=== PATIENT | male | born 1955 | race Caucasian/White ===

== ENCOUNTER 2016-08-23 11:18 | Emergency (ER) | payer BC, OTHER ==
[2016-08-23] MEDS ORDERED: IPRATROPIUM/ALBUTEROL (0.5MG/3MG) NEB INH ONE (11:42)
[2016-08-23] MEDS ORDERED: METHYLPREDNISOLONE PF 125MG/VIAL IVP SCH (11:45)
[2016-08-23 11:52] LABS: BASO % 0.4 % (0-6); EOS % 2.4 % (0-6); GRAN % 67.4 % (47-80); HEMATOCRIT 42.1 % (42.0-52.0); HEMOGLOBIN 14.2 gm/dl (14.0-18.0); LYMPH % 17.9 % (16-45); MEAN CORPUSCULAR HEMOGLOBIN 31.7 pg (27-33); MEAN CORPUSCULAR HGB CONC 33.7 g/dl (32-36); MEAN PLATELET VOLUME 9.3 fl (7.4-10.4); MONO % 11.9 % (0-9); PLATELET COUNT 323 K/uL (130-400); RED BLOOD COUNT 4.48 M/uL (4.40-5.70); RED CELL DISTRIBUTION WIDTH 12.6 % (11.5-14.5); WHITE BLOOD COUNT W/O DIFF 7.9 K/uL (4.2-12.2)
--- NOTE | 2016-08-23 11:52 | Emergency Department Record ---
History of Present Illness - General Chief Complaint: Difficulty Breathing Stated Complaint: COUGH,JAMI Time Seen by Provider: 08/23/16 11:42 Source: Patient, Family Mode of Arrival: Ambulatory Limitations: No limitations - History of Present Illness Initial Comments: 61 yo male presents with 2 months of persistent cough. He has had yellow sputum. No blood. He is a smoker life long. No NVD. No edema. No chest pain. He has seen Dr Sumner in the past but not currently. Complaint: Cough Onset/Timin -: Month(s) Severity: Severe Consistency: Intermittent Worsens With: Exertion Known History Of: Other (chronic smoker) Context: Recent URI Associated Symptoms: Denies other symptoms Treatments Prior to Arrival: None - Related Data Home Oxygen Therapy: No Previous Rx's Medication Instructions Recorded Azithromycin [Zithromax] 250 mg PO DAILY #6 tab 08/23/16 Benzonatate [Tessalon] 1 cap PO Q8H PRN #20 cap 08/23/16 Ipratropium/Albuterol [Duoneb] 3 ml IH NOW #30 ampul.neb. 08/23/16 Prednisone [Prednisone 20Mg] 20 mg PO BID #10 tab 08/23/16 Allergies Allergy/AdvReac Type Severity Reaction Status Date / Time No Known Drug Allergies Allergy Verified 08/23/16 11:30 Travel Screening - Travel/Exposure Within Last 30 Days Have you traveled within the last 30 days?: No Review of Systems Constitutional: Denies: Chills, Fever, Malaise, Weakness Eyes: Denies: Eye discharge ENT: Reports: Congestion. Denies: Throat pain Respiratory: Reports: Cough, Wheezes. Denies: Dyspnea, Hemoptysis, Stridor Cardiovascular: Denies: Chest pain, Palpitations, Syncope Endocrine: Denies: Fatigue Gastrointestinal: Denies: Abdominal pain, Diarrhea, Nausea, Vomiting Genitourinary: Denies: Dysuria, Frequency, Hematuria Musculoskeletal: Denies: Arthralgia, Back pain, Joint swelling, Myalgia Skin: Denies: Bruising, Change in color, Rash Neurological: Denies: Confusion, Headache Psychiatric: Denies: Anxiety Hematological/Lymphatic: Denies: Blood Clots, Easy bleeding, Easy bruising, Swollen glands Past Medical History - SOCIAL HISTORY Smoking Status: Current every day smoker Alcohol Use: Heavy Drug Use: None - RESPIRATORY Hx Respiratory Disorders: Yes Comment:: emphysema - CARDIOVASCULAR Hx Cardio Disorders: No - NEURO Hx Neuro Disorders: No - GI Hx GI Disorders: No - Hx Genitourinary Disorders: No - ENDOCRINE Hx Endocrine Disorders: No - MUSCULOSKELETAL Hx Musculoskeletal Disorders: No - PSYCH Hx Psych Problems: No - HEMATOLOGY/ONCOLOGY Hx Hematology/Oncology Disorders: Yes Hx Blood Transfusions: Yes Family Medical History Any Significant Family History?: No Physical Exam - General General Appearance: Alert, Oriented x3, Cooperative, No acute distress Limitations: No limitations - Head Head exam: Normal inspection - Eye Eye exam: Normal appearance, PERRL. negative: Conjunctival injection, Periorbital swelling - ENT ENT exam: Normal exam, Mucous membranes moist, Normal external ear exam, Normal orophraynx Ear exam: Normal external inspection. negative: External canal tenderness Nasal Exam: Normal inspection. negative: Discharge, Sinus tenderness Mouth exam: Normal external inspection, Tongue normal Teeth exam: Normal inspection. negative: Dental caries Throat exam: Normal inspection. negative: Tonsillar erythema, Tonsillar exudate - Neck Neck exam: Normal inspection, Full ROM. negative: Tenderness - Respiratory Respiratory exam: Decreased breath sounds, Prolonged expiratory, Wheezes (end expiratory). negative: Respiratory distress - Cardiovascular Cardiovascular Exam: Regular rate, Normal rhythm, Normal heart sounds - GI/Abdominal GI/Abdominal exam: Soft, Normal bowel sounds. negative: Tenderness - Rectal Rectal exam: Deferred - exam: Deferred - Extremities Extremities exam: Normal inspection, Full ROM, Normal capillary refill. negative: Tenderness - Back Back exam: Reports: Normal inspection, Full ROM. Denies: Muscle spasm, Rash noted, Tenderness - Neurological Neurological exam: Alert, Normal gait, Oriented X3 - Psychiatric Psychiatric exam: Normal affect, Normal mood. negative: Agitated, Anxious - Skin Skin exam: Dry, Intact, Normal color, Warm. negative: Cyanosis, Diaphoretic, Erythema Course Vital Signs 08/23/16 11:23 Temperature 97.7 F Pulse Rate 108 H Respiratory 20 Rate Blood Pressure 187/98 Pulse Ox 97 - Reevaluation(s) Reevaluation #1: vitals reviewed No hypoxia or fever He has mild end expiratory wheeze 08/23/16 11:46 Reevaluation #2: The CBC and BMP reviewed No acute changes 08/23/16 12:07 Reevaluation #3: The patient was rechecked He is doing much better. Minimal wheeze. 08/23/16 12:18 Reevaluation #4: CXR demonstrates elongated lung jarvis CW long standing COPD 08/23/16 12:20 Medical Decision Making - Lab Data Result diagrams: 08/23/16 11:30 08/23/16 11:30 Disposition Disposition: Discharge Clinical Impression: COPD (chronic obstructive pulmonary disease) with acute bronchitis Condition: (1) Good Instructions: Dyspnea (ED), Chronic Obstructive Pulmonary Disease (ED) Additional Instructions: Call your doctor today to be seen first of the week Return if worse, short of breath or any new concerns. Your prescriptions have been sent to [facility]. Start them today. Prescriptions: Ipratropium/Albuterol [Duoneb] 3 ml IH NOW #30 ampul.neb. Prednisone [Prednisone 20Mg] 20 mg PO BID #10 tab Benzonatate [Tessalon] 1 cap PO Q8H PRN #20 cap PRN Reason: Cough Azithromycin [Zithromax] 250 mg PO DAILY #6 tab Forms: Patient Portal Access
[2016-08-23 12:05] LABS: ANION GAP 14.2 (7-16); BLOOD UREA NITROGEN 10 mg/dL (9-20); CARBON DIOXIDE 23.8 mmol/L (22-30); CREATININE 0.7 mg/dL (0.66-1.25); EST GLOMERULAR FILTRATION RATE > 60 ml/min; GLUCOSE,RANDOM 117 mg/dL (70-110)
[2016-08-23 12:07] LABS: INFLUENZA A NEGATIVE (NEGATIVE); INFLUENZA B NEGATIVE (NEGATIVE)
--- NOTE | 2016-08-28 09:06 | RADIOLOGY REPORT ---
EXAM: CHEST, TWO VIEWS HISTORY: PRODUCTIVE COUGH FOR THREE MONTHS. DIFFICULTY BREATHING WITH EXERTION. SMOKER. TECHNIQUE: Two views of the chest were obtained. Comparison: None. FINDINGS: The lungs are hyperinflated with upper lung lucency consistent with emphysema. The lungs are clear. The cardiomediastinal silhouette, diaphragm, and osseous structures are unremarkable. IMPRESSION: EMPHYSEMA. NO ACUTE PROCESS. JOB NUMBER: [id number] MTDD
== END 2016-08-23 12:37 | disposition home or self-care (01) ==
LOC: ER 11:18
DX: J44.0 Chronic obstructive pulmonary disease with (acute) lower respiratory infection (principal); J20.9 Acute bronchitis, unspecified; F17.210 Nicotine dependence, cigarettes, uncomplicated
CPT/HCPCS: 71020; 80048; 85025; 87400; 94640; 96374; 99284; J2930

== ENCOUNTER 2017-04-30 08:07 | Observation (INO) | payer BC ==
[2017-04-30] MEDS ORDERED: 0.9 % SODIUM CHLORIDE 1000ML 1,000 ML IV PRN (08:11)
[2017-04-30] MEDS ORDERED: METHYLPREDNISOLONE PF 125MG/VIAL IVP ONE (08:11)
[2017-04-30] MEDS ORDERED: ALBUTEROL SULFATE (0.083%) 2.5 MG/3 ML NEB INH ONE (08:13)
[2017-04-30 08:37] LABS: BASO % 0.2 % (0-6); EOS % 0.4 % (0-6); GRAN % 79.2 % (47-80); HEMATOCRIT 39.7 % (42.0-52.0); HEMOGLOBIN 13.8 gm/dl (14.0-18.0); LYMPH % 7.6 % (16-45); MEAN CELL VOLUME 92.1 fl (81-97); MEAN CORPUSCULAR HGB CONC 34.8 g/dl (32-36); MEAN PLATELET VOLUME 9.3 fl (7.4-10.4); MONO % 12.6 % (0-9); PLATELET COUNT 318 K/uL (130-400); RED BLOOD COUNT 4.31 M/uL (4.40-5.70); WHITE BLOOD COUNT W/O DIFF 10.2 K/uL (4.2-12.2)
[2017-04-30 09:00] LABS: BLOOD UREA NITROGEN 10 mg/dL (6-20); CKMB 6.8 ng/mL (<6.73); CREATININE 0.5 mg/dL (0.7-1.2); EST GLOMERULAR FILTRATION RATE > 60 mL/min; GLUCOSE,RANDOM 143 mg/dL (74-109)
[2017-04-30 09:01] LABS: TROPONIN I < 0.30 ng/mL (0.00-0.300)
--- NOTE | 2017-04-30 09:11 | Emergency Department Record ---
History of Present Illness - General Chief Complaint: Shortness of breath Stated Complaint: JAMI Time Seen by Provider: 04/30/17 08:11 Source: Patient, RN notes reviewed Mode of Arrival: EMS - History of Present Illness Initial Comments: SOB and a cough worse this am and he went to work and called EMS and transported here and was given a duoneb in route. Patient said congestion and cough started couple of days ago. Patient still smoking and trying to quite . No chest pain and he is producing sputum. History of COPD MD Complaint: Cough, Shortness of breath Onset/Timin -: Hour(s) Consistency: Constant Improves With: Bronchodilators Associated Symptoms: Diaphoresis Treatments Prior to Arrival: Bronchodilator - Related Data Previous Rx's Medication Instructions Recorded Ipratropium/Albuterol [Duoneb] 3 ml IH NOW #30 ampul.neb. 08/23/16 Allergies Allergy/AdvReac Type Severity Reaction Status Date / Time No Known Drug Allergies Allergy Verified 08/23/16 11:30 Travel Screening - Travel/Exposure Within Last 30 Days Have you traveled within the last 30 days?: No - Travel/Exposure Within Last Year Have you traveled outside the [place] in the last year?: No - Additonal Travel Details Have you been exposed to anyone with a communicable illness?: No - Travel Symptoms Symptom Screening: None Review of Systems Reviewed: No additional complaints except as noted below Constitutional: Reports: As per HPI. Denies: Chills, Fever, Malaise, Night sweats, Weakness, Weight change Eyes: Reports: As per HPI. Denies: Eye discharge, Eye pain, Photophobia, Vision change ENT: Reports: As per HPI. Denies: Congestion, Dental pain, Ear pain, Epistaxis , Hearing loss, Throat pain Respiratory: Reports: As per HPI, Cough, Dyspnea, Wheezes. Denies: Hemoptysis, Stridor Cardiovascular: Reports: As per HPI. Denies: Arrhythmia, Chest pain, Dyspnea on exertion, Edema, Murmurs, Orthopnea, Palpitations, Paroxysmal nocturnal dyspnea, Rheumatic Fever, Syncope Endocrine: Reports: As per HPI. Denies: Fatigue, Heat or cold intolerance, Polydipsia, Polyuria Gastrointestinal: Reports: As per HPI. Denies: Abdominal pain, Constipation, Diarrhea, Hematemesis, Hematochezia, Melena, Nausea, Vomiting Genitourinary: Reports: As per HPI. Denies: Dysuria, Frequency, Hematuria, Incontinence, Retention, Testicular pain, Testicular mass, Urgency Musculoskeletal: Reports: As per HPI. Denies: Arthralgia, Back pain, Gout, Joint swelling, Myalgia, Neck pain Skin: Reports: As per HPI. Denies: Bruising, Change in color, Change in hair/ nails, Lesions, Pruritus, Rash Neurological: Reports: As per HPI. Denies: Abnormal gait, Confusion, Headache, Numbness, Paresthesias, Seizure, Tingling, Tremors, Vertigo, Weakness Psychiatric: Reports: As per HPI. Denies: Anxiety, Auditory hallucinations, Depression, Homicidal thoughts, Suicidal thoughts, Visual hallucinations Hematological/Lymphatic: Reports: As per HPI. Denies: Anemia, Blood Clots, Easy bleeding, Easy bruising, Swollen glands Past Medical History - SOCIAL HISTORY Smoking Status: Current every day smoker Alcohol Use: Heavy Alcohol Use Comment: 4-6 25oz beers daily Drug Use: None - RESPIRATORY Hx Respiratory Disorders: Yes Hx COPD: Yes Comment:: emphysema - CARDIOVASCULAR Hx Cardio Disorders: No - NEURO Hx Neuro Disorders: No - GI Hx GI Disorders: No - Hx Genitourinary Disorders: No - ENDOCRINE Hx Endocrine Disorders: No - MUSCULOSKELETAL Hx Musculoskeletal Disorders: No - PSYCH Hx Psych Problems: No - HEMATOLOGY/ONCOLOGY Hx Hematology/Oncology Disorders: Yes Hx Blood Transfusions: Yes Family Medical History Any Significant Family History?: No Physical Exam - General General Appearance: Alert, Oriented x3, Cooperative, No acute distress - Head Head exam: Normal inspection - Eye Eye exam: Normal appearance, PERRL Pupils: Normal accommodation - ENT ENT exam: Normal exam, Mucous membranes moist, Normal external ear exam, Normal orophraynx, TM's normal bilaterally Ear exam: Normal external inspection. negative: External canal tenderness Nasal Exam: Normal inspection. negative: Discharge, Sinus tenderness Mouth exam: Normal external inspection, Tongue normal Teeth exam: Normal inspection. negative: Dental caries Throat exam: Normal inspection. negative: Tonsillar erythema, Tonsillar exudate - Neck Neck exam: Normal inspection, Full ROM. negative: Tenderness - Respiratory Respiratory exam: Decreased breath sounds (IN LEFT LOWER LOBE WITH EGOPHONY), Wheezes. negative: Respiratory distress - Cardiovascular Cardiovascular Exam: Regular rate, Normal rhythm, Normal heart sounds - GI/Abdominal GI/Abdominal exam: Soft, Normal bowel sounds. negative: Tenderness - Rectal Rectal exam: Deferred - exam: Deferred - Extremities Extremities exam: Normal inspection, Full ROM, Normal capillary refill. negative: Tenderness - Back Back exam: Reports: Normal inspection, Full ROM. Denies: Muscle spasm, Rash noted, Tenderness - Neurological Neurological exam: Alert, Normal gait, Oriented X3, Reflexes normal - Psychiatric Psychiatric exam: Normal affect, Normal mood - Skin Skin exam: Dry, Intact, Normal color, Warm Course Vital Signs 04/30/17 04/30/17 04/30/17 08:08 08:11 08:21 Temperature 98.5 F Pulse Rate 103 H 106 H Pulse Rate [ 105 H Pulse Ox Probe] Respiratory 11 L 20 20 Rate Blood Pressure 179/84 Blood Pressure 134/85 [Left Arm] Pulse Ox 98 98 98 04/30/17 08:50 Temperature Pulse Rate Pulse Rate [ 108 H Pulse Ox Probe] Respiratory 20 Rate Blood Pressure Blood Pressure 132/83 [Left Arm] Pulse Ox [address] Fabian and will admit. Dr. Fabian here to evaluate. Medical Decision Making - Data Complexity MDM Data: Labs Ordered and/or Reviewed, X-Ray Ordered and/or Reviewed (left lower lung infiltrate), EKG Ordered and/or Reviewed (No acute changes and sinus tach, ) - Lab Data Result diagrams: 04/30/17 08:25 04/30/17 08:25 Lab Results 04/30/17 04/30/17 04/30/17 Range/Units 08:25 08:25 08:25 WBC 10.2 (4.2-12.2) K/uL RBC 4.31 L (4.40-5.70) M/uL Hgb 13.8 L (14.0-18.0) gm/dl Hct 39.7 L (42.0-52.0) % MCV 92.1 (81-97) fl MCH 32.0 (27-33) pg MCHC 34.8 (32-36) g/dl RDW 13.0 (11.5-14.5) % Plt Count 318 (130-400) K/uL MPV 9.3 (7.4-10.4) fl Gran % 79.2 (47-80) % Lymphocytes % 7.6 L (16-45) % Monocytes % 12.6 H (0-9) % Eosinophils % 0.4 (0-6) % Basophils % 0.2 (0-6) % APTT 30.70 (24.5-39.1) SECONDS Sodium 130 L (136-145) mmol/L Potassium 4.0 (3.4-4.5) mmol/L Chloride 90 L (98-107) mmol/L Carbon Dioxide 25.0 (22-29) mmol/L Anion Gap 15.0 (7-16) BUN 10 (6-20) mg/dL Creatinine 0.5 L (0.7-1.2) mg/dL Estimated GFR > 60 mL/min Random Glucose 143 H (74-109) mg/dL Calcium 9.3 (8.6-10.0) mg/dL CK-MB (CK-2) 6.8 H (<6.73) ng/mL Troponin I < 0.30 (0.00-0.300) ng/mL Disposition Clinical Impression: COPD (chronic obstructive pulmonary disease) with acute bronchitis LLL pneumonia Qualifiers: Pneumonia type: due to unspecified organism Qualified Code(s): J18.1 - Lobar pneumonia, unspecified organism Decision to Admit: Admit from ER Condition: (2) Stable Forms: Patient Portal Access Time of Disposition: 11:36 Quality - Quality Measures Quality Measures: N/A - Blood Pressure Screening Does Patient Have Any of the Following: No Blood Pressure Classification: Pre-Hypertensive BP Reading Systolic Measurement: 179 Diastolic Measurement: 84 Screening for High Blood Pressure: < Pre-Hypertensive BP, F/U Documented > [ G8950] Pre-Hypertensive Follow-up Interventions: Referral to alternative/primary care provider.
[2017-04-30] MEDS ORDERED: CEFTRIAXONE SODIUM 1 GM in 0.9 % SODIUM CHLORIDE 100ML 100 ML IVPB ONE (09:13)
[2017-04-30] MEDS ORDERED: 0.9 % SODIUM CHLORIDE 500ML 500 ML IV SCH (09:15)
[2017-04-30] MEDS ORDERED: AZITHROMYCIN 500 MG TABLET PO ONE ×2 (09:22→09:58)
[2017-04-30] MEDS ORDERED: AZITHROMYCIN 500 MG TABLET PO SCH (10:00)
[2017-04-30 10:40] LABS: CREATINE PHOSPHOKINASE 228 U/L (39-308)
[2017-04-30] MEDS ORDERED: ALBUTEROL SULFATE (0.083%) 2.5 MG/3 ML NEB INH PRN (12:14)
[2017-04-30] MEDS: 0.9 % SODIUM CHLORIDE 1000ML 1,000 ML IV PRN ×2 (13:00→21:11)
[2017-04-30] MEDS ORDERED: PNEUM 23-VAL ADULT IM ONE (13:14)
[2017-04-30] MEDS ORDERED: FLU VAC QS 2017-18 (INPT, 6MO+) 60MCG/0.5ML IM ONE (13:14)
[2017-04-30] MEDS: IPRATROPIUM/ALBUTEROL (0.5MG/3MG) NEB INH SCH ×3 (14:06→22:19)
[2017-04-30] MEDS: METHYLPREDNISOLONE PF 125MG/VIAL IVP SCH ×2 (15:07→21:08)
--- NOTE | 2017-04-30 19:14 | History & Physical ---
History of Present Illness - Date of Service Date of Service for History & Physical: 04/30/17 - History of Present Illness Admitting Diagnosis: Left lower pneumonia. copd with wheezing History of Present Illness: Mr. Vargas is a 61 y/o male who presents with complaint of shortness of breath over the past 2 days. The patient says that he at baseline shortness of breath but this was worse and he also began having a cough productive of white/yellow phlegm. He is a long-term smoker with a 40 pk/yr smoking history and says he did have a severe pneumonia about 8 years ago having to be hospitalized. He has never been intubated and denies fevers, chills, nausea, vomiting, chest pain or diaphoresis. On arrival to the ED the patient was noted be tachycardic and mildly hypoxic with chest xray showing infiltrate in the left lower lung. The patient was started on Rocephin and Azithromycin, IV solumedrol and respiratory treatments. On examination in the ED the patient appears stable, saturating in the mid 90's on 2 liters nasal cannula oxygen. He does not appear to be in acute distress at this time. Travel Screening - Travel/Exposure Within Last 30 Days Have you traveled within the last 30 days?: No - Travel/Exposure Within Last Year Have you traveled outside the [place] in the last year?: No - Additonal Travel Details Have you been exposed to anyone with a communicable illness?: No - Travel Symptoms Symptom Screening: None Review of Systems Constitutional: Reports: As per HPI. Denies: Chills, Fever, Malaise, Night sweats, Weakness, Weight change Eyes: Reports: As per HPI. Denies: Eye discharge, Eye pain, Photophobia, Vision change ENT: Reports: As per HPI. Denies: Congestion, Dental pain, Ear pain, Epistaxis , Hearing loss, Throat pain Respiratory: Reports: As per HPI, Cough, Dyspnea, Wheezes. Denies: Hemoptysis, Stridor Cardiovascular: Reports: As per HPI. Denies: Arrhythmia, Chest pain, Dyspnea on exertion, Edema, Murmurs, Orthopnea, Palpitations, Paroxysmal nocturnal dyspnea, Rheumatic Fever, Syncope Endocrine: Reports: As per HPI. Denies: Fatigue, Heat or cold intolerance, Polydipsia, Polyuria Gastrointestinal: Reports: As per HPI. Denies: Abdominal pain, Constipation, Diarrhea, Hematemesis, Hematochezia, Melena, Nausea, Vomiting Genitourinary: Reports: As per HPI. Denies: Dysuria, Frequency, Hematuria, Incontinence, Retention, Testicular pain, Testicular mass, Urgency Musculoskeletal: Reports: As per HPI. Denies: Arthralgia, Back pain, Gout, Joint swelling, Myalgia, Neck pain Skin: Reports: As per HPI. Denies: Bruising, Change in color, Change in hair/ nails, Lesions, Pruritus, Rash Neurological: Reports: As per HPI. Denies: Abnormal gait, Confusion, Headache, Numbness, Paresthesias, Seizure, Tingling, Tremors, Vertigo, Weakness Psychiatric: Reports: As per HPI. Denies: Anxiety, Auditory hallucinations, Depression, Homicidal thoughts, Suicidal thoughts, Visual hallucinations Hematological/Lymphatic: Reports: As per HPI. Denies: Anemia, Blood Clots, Easy bleeding, Easy bruising, Swollen glands Past Medical History - SOCIAL HISTORY Smoking Status: Current every day smoker Alcohol Use: Heavy Alcohol Use Comment: 4-6 25oz beers per day Drug Use: None - RESPIRATORY Hx Respiratory Disorders: Yes Hx Bronchitis: Yes Hx COPD: Yes Comment:: emphysema - CARDIOVASCULAR Hx Cardio Disorders: No Hx Hypertension: Yes (non-compliant with medications) - NEURO Hx Neuro Disorders: No - GI Hx GI Disorders: No - Hx Genitourinary Disorders: No - ENDOCRINE Hx Endocrine Disorders: No - MUSCULOSKELETAL Hx Musculoskeletal Disorders: No Hx Arthritis: Yes - PSYCH Hx Psych Problems: No - HEMATOLOGY/ONCOLOGY Hx Hematology/Oncology Disorders: Yes Hx Blood Transfusions: Yes (d/t heavy nose bleed) Family Medical History Any Significant Family History?: No H&P Meds/Allergies - Allergies Allergies: Allergies Allergy/AdvReac Type Severity Reaction Status Date / Time No Known Drug Allergies Allergy Verified 08/23/16 11:30 - Home Medications Previous Rx's Medication Instructions Recorded Ipratropium/Albuterol [Duoneb] 3 ml IH NOW #30 ampul.neb. 08/23/16 - Active Medications Active Medications: Current Medications Albuterol Sulfate () 2.5 mg INH RESP.Q2H PRN PRN Reason: DIFFICULTY IN BREATHING Albuterol/Ipratropium (Duoneb) 3 ml INH RESP.Q4H.WA AIDAN Last Admin: 04/30/17 17:41 Dose: 3 ml Azithromycin (Zithromax) 500 mg PO DAILY [facility] Enoxaparin Sodium (Lovenox) 40 mg SC DAILY [facility] Sodium Chloride () 1,000 mls @ 125 mls/hr IV .Q8H PRN PRN Reason: LARGE VOLUME IV Last Admin: 04/30/17 13:00 Dose: 125 mls/hr Ceftriaxone Sodium 1 gm/ (Sodium Chloride) 100 mls @ 100 mls/hr IVPB Q12HR [facility] Stop: 05/05/17 22:01 Methylprednisolone Sodium Succinate (Solu-Medrol) 60 mg IVP Q8HR [facility] Last Admin: 04/30/17 15:07 Dose: 60 mg Physical Exam - Vital Signs Vital Signs: Vital Signs - Last 24 Hrs Temp Pulse Pulse Resp BP BP Pulse Ox 04/30/17 18:00 97.5 F L 115 H 20 182/82 96 04/30/17 17:40 87 15 04/30/17 14:05 91 H 16 96 04/30/17 13:24 101 H 16 04/30/17 13:15 98.9 F 100 H 18 160/83 94 L 04/30/17 13:04 91 H 16 155/83 96 - General General Appearance: Alert, Oriented x3, Cooperative, No acute distress - Head Head exam: Normal inspection - Eye Eye exam: Normal appearance, PERRL Pupils: Normal accommodation - ENT ENT exam: Normal exam, Mucous membranes moist, Normal external ear exam, Normal orophraynx, TM's normal bilaterally Ear exam: Normal external inspection. negative: External canal tenderness Nasal Exam: Normal inspection. negative: Discharge, Sinus tenderness Mouth exam: Normal external inspection, Tongue normal Teeth exam: Normal inspection. negative: Dental caries Throat exam: Normal inspection. negative: Tonsillar erythema, Tonsillar exudate - Neck Neck exam: Normal inspection, Full ROM. negative: Tenderness - Respiratory Respiratory exam: Decreased breath sounds (IN LEFT LOWER LOBE WITH EGOPHONY), Rhonchi (bilateral lung bases ), Wheezes. negative: Respiratory distress - Cardiovascular Cardiovascular Exam: Regular rate, Normal rhythm, Normal heart sounds, Tachycardia Peripheral Pulses: 2+: Radial (R), Radial (L), Dorsalis Pedis (R), Dorsalis Pedis (L) - GI/Abdominal GI/Abdominal exam: Soft, Normal bowel sounds. negative: Tenderness - Rectal Rectal exam: Deferred - exam: Deferred - Extremities Extremities exam: Normal inspection, Full ROM, Normal capillary refill. negative: Tenderness - Back Back exam: Reports: Normal inspection, Full ROM. Denies: Muscle spasm, Rash noted, Tenderness - Neurological Neurological exam: Alert, Normal gait, Oriented X3, Reflexes normal - Psychiatric Psychiatric exam: Normal affect, Normal mood - Skin Skin exam: Dry, Intact, Normal color, Warm - Other Other Exam Information: noted bilateral metacarpal clubbing Results - Labs Result Diagrams: 04/30/17 08:25 04/30/17 08:25 VTE H&P Assessment - Risk for VTE Risk for VTE: Yes Risk Level: Moderate Risk Assessment Date: 04/30/17 Risk Assessment Time: 19:25 VTE Orders Placed or Will Be Placed: Yes Plan - Inpatient Certification Inpatient Certification: Admit to inpatient care: Based on my medical assessment, after consideration of patient's risk factors (age, co-morbidities and patient presenting symptoms and acuity), I expect that this patient will remain in the hospital greater than or equal to two midnights and that the services needed warrant inpatient care because: Estimated length of stay: 24-48 hours The patient may reasonably be expected to be discharged or transferred to a hospital within 96 hours after admission to [facility]. Services needed: [] Post hospital care (if known): PFTs, pt needs a PCP I certify that my determination is in accordance with my understanding of Medicare requirements for reasonable and necessary inpatient services. - Detailed Diagnosis and Plan (1) LLL pneumonia Plan: - CXR shows left lower lobe infiltrate. CURB 65 - 0, pt could be managed as an outpatient based on scoring but considering his COPD and elevated BP inpatient workup would be appropriate. - patient started on Zithromax/Rocephin IV, will order sputum g/c. BCX pending , PO medications starting in the morning. repeat CBC w/ diff, lytes - respiratory treatments: duonebs changed to Q4H, chest physiotherapy - repeat cxr 4 weeks post d/c for eval resolution Current Visit: Yes Status: Acute Qualifiers: Pneumonia type: due to unspecified organism Qualified Code(s): J18.1 - Lobar pneumonia, unspecified organism Base Code: J18.1 - LOBAR PNEUMONIA, UNSPECIFIED ORGANISM (2) COPD (chronic obstructive pulmonary disease) with acute bronchitis Plan: - titrate oxygen to keep sats > 92% - respiratory therapy Q4H scheduled, ordered Breo for tomorrow, chest physiotherapy daily - continue Zithromax/Rocephin change to PO meds, change Solumedrol 60mg Q8H to prednisone PO - Pneumovax and seasonal influenza vaccination needed. - Opt PFTs and f/u with Pulmonary medicine for low dose CT and abdominal U/S for AAA screening. Current Visit: Yes Status: Acute Base Code: J44.0 - CHRONIC OBSTRUCTIVE PULMON DISEASE W ACUTE LOWER RESP INFCT; J20.9 - ACUTE BRONCHITIS, UNSPECIFIED (3) Hypertension Plan: - pts BP is poorly controlled, 160/83 --> 182/82 - started patient on Lisinopril 20mg PO QD, will titrate as appropriate. - lipid panel ordered. Current Visit: Yes Status: Acute Qualifiers: Hypertension type: essential hypertension Qualified Code(s): I10 - Essential (primary) hypertension Base Code: I10 - ESSENTIAL (PRIMARY) HYPERTENSION (4) Tobacco abuse Plan: - 40 pk/yr smoking, currently smokes - ordered nicotine patches - counseled > 5 mins regarding cessation. Current Visit: Yes Status: Acute Base Code: Z72.0 - TOBACCO USE (5) Full code status Plan: FULL CODE Current Visit: Yes Status: Acute Base Code: Z78.9 - OTHER SPECIFIED HEALTH STATUS - Disposition Patient is stable. Respiratory status has improved. Likely d/c tomorrow with PO antibiotics. Requires good outpatient follow up and workup.
[2017-04-30] MEDS: LISINOPRIL 20 MG TABLET PO SCH (19:23)
[2017-04-30] MEDS: CEFTRIAXONE SODIUM 1 GM in 0.9 % SODIUM CHLORIDE 100ML 100 ML IVPB SCH (21:09)
[2017-05-01] MEDS: 0.9 % SODIUM CHLORIDE 1000ML 1,000 ML IV PRN (05:50)
[2017-05-01] MEDS ORDERED: BREO (FLUTICASONE/VILANTEROL) 100MCG/25MCG INHALER INH SCH (06:00)
[2017-05-01] MEDS: IPRATROPIUM/ALBUTEROL (0.5MG/3MG) NEB INH SCH ×2 (06:02→09:45)
[2017-05-01 07:01] LABS: BASO % 0.1 % (0-6); HEMATOCRIT 38.3 % (42.0-52.0); LYMPH % 6.2 % (16-45); MEAN CELL VOLUME 93.6 fl (81-97); MEAN CORPUSCULAR HGB CONC 33.9 g/dl (32-36); MEAN PLATELET VOLUME 9.2 fl (7.4-10.4); MONO % 5.9 % (0-9); PLATELET COUNT 342 K/uL (130-400); RED BLOOD COUNT 4.09 M/uL (4.40-5.70); RED CELL DISTRIBUTION WIDTH 13.2 % (11.5-14.5); WHITE BLOOD COUNT W/O DIFF 11.2 K/uL (4.2-12.2)
--- NOTE | 2017-05-01 07:24 | RADIOLOGY REPORT ---
EXAM: CHEST, TWO VIEWS HISTORY: CHEST PAIN. TECHNIQUE: Frontal and lateral views of the chest were obtained. Comparison: 08/23/16 chest. FINDINGS: The heart size is normal. Osteopenia. Accentuation of the normal thoracic kyphosis. Underlying COPD. No pneumothorax. Patchy opacity left lung base, suspicious for pneumonia. Biapical pleural thickening. IMPRESSION: COPD. LEFT BASILAR AIR SPACE OPACITY. RECOMMEND FOLLOW-UP UNTIL RESOLUTION. JOB NUMBER: [id number] MTDD
[2017-05-01 07:30] LABS: MEAN CORPUSCULAR HEMOGLOBIN 31.7 pg (27-33)
--- NOTE | 2017-05-01 07:57 | Physician Progress Note ---
Subjective - Date Date of Physician Progress Note: 05/01/17 Objective - Vital Signs Vital Signs: Vital Signs - Last 24 Hrs Temp Pulse Pulse Resp BP BP Pulse Ox 05/01/17 06:05 86 16 05/01/17 06:01 86 16 97 05/01/17 05:59 98.3 F 20 138/75 92 L 05/01/17 03:42 98.7 F 78 20 127/74 93 L 04/30/17 22:23 88 16 04/30/17 22:22 84 16 94 L 04/30/17 20:37 98.3 F 98 H 20 157/78 97 04/30/17 18:00 97.5 F L 115 H 20 182/82 96 04/30/17 17:40 87 15 04/30/17 14:05 91 H 16 96 04/30/17 13:24 101 H 16 04/30/17 13:15 98.9 F 100 H 18 160/83 94 L 04/30/17 13:04 91 H 16 155/83 96 - General General Appearance: Alert, Oriented x3, Cooperative, No acute distress - Head Head exam: Normal inspection - Eye Eye exam: Normal appearance, PERRL Pupils: Normal accommodation - ENT ENT exam: Normal exam, Mucous membranes moist, Normal external ear exam, Normal orophraynx, TM's normal bilaterally Ear exam: Normal external inspection. negative: External canal tenderness Nasal Exam: Normal inspection. negative: Discharge, Sinus tenderness Mouth exam: Normal external inspection, Tongue normal Teeth exam: Normal inspection. negative: Dental caries Throat exam: Normal inspection. negative: Tonsillar erythema, Tonsillar exudate - Neck Neck exam: Normal inspection, Full ROM. negative: Tenderness - Respiratory Respiratory exam: Decreased breath sounds (IN LEFT LOWER LOBE WITH EGOPHONY), Rhonchi (bilateral lung bases ), Wheezes. negative: Respiratory distress - Cardiovascular Cardiovascular Exam: Regular rate, Normal rhythm, Normal heart sounds, Tachycardia Peripheral Pulses: 2+: Radial (R), Radial (L), Dorsalis Pedis (R), Dorsalis Pedis (L) - GI/Abdominal GI/Abdominal exam: Soft, Normal bowel sounds. negative: Tenderness - Rectal Rectal exam: Deferred - exam: Deferred - Extremities Extremities exam: Normal inspection, Full ROM, Normal capillary refill. negative: Tenderness - Back Back exam: Reports: Normal inspection, Full ROM. Denies: Muscle spasm, Rash noted, Tenderness - Neurological Neurological exam: Alert, Normal gait, Oriented X3, Reflexes normal - Psychiatric Psychiatric exam: Normal affect, Normal mood - Skin Skin exam: Dry, Intact, Normal color, Warm Assessment and Plan - Assessment and Plan (1) LLL pneumonia Current Visit: Yes Status: Acute Qualifiers: Pneumonia type: due to unspecified organism Qualified Code(s): J18.1 - Lobar pneumonia, unspecified organism Base Code: J18.1 - LOBAR PNEUMONIA, UNSPECIFIED ORGANISM (2) COPD (chronic obstructive pulmonary disease) with acute bronchitis Current Visit: Yes Status: Acute Base Code: J44.0 - CHRONIC OBSTRUCTIVE PULMON DISEASE W ACUTE LOWER RESP INFCT; J20.9 - ACUTE BRONCHITIS, UNSPECIFIED (3) Hypertension Current Visit: Yes Status: Acute Qualifiers: Hypertension type: essential hypertension Qualified Code(s): I10 - Essential (primary) hypertension Base Code: I10 - ESSENTIAL (PRIMARY) HYPERTENSION (4) Tobacco abuse Current Visit: Yes Status: Acute Base Code: Z72.0 - TOBACCO USE (5) Full code status Current Visit: Yes Status: Acute Base Code: Z78.9 - OTHER SPECIFIED HEALTH STATUS - Disposition Disposition: Patient is stable. Respiratory status has improved. Likely d/c tomorrow with PO antibiotics. Requires good outpatient follow up and workup. Results - Labs Result Diagrams: 05/01/17 06:25 04/30/17 08:25 Labs Last 24 Hours: Laboratory Results - last 24 hr 05/01/17 06:25 WBC 11.2 RBC 4.09 L Hgb 13.0 L Hct 38.3 L MCV 93.6 MCH 31.7 MCHC 33.9 RDW 13.2 Plt Count 342 MPV 9.2 Lymphocytes % 6.2 L Monocytes % 5.9 Eosinophils % 0.0 Basophils % 0.1 DVT/PE Assessment - Risk for VTE Risk for VTE: No Risk Level: Moderate Risk Assessment Date: 04/30/17 Risk Assessment Time: 19:25 VTE Orders Placed or Will Be Placed: Yes - Active Medicaitons Current Medications: Current Medications Albuterol Sulfate () 2.5 mg INH RESP.Q2H PRN PRN Reason: DIFFICULTY IN BREATHING Albuterol/Ipratropium (Duoneb) 3 ml INH RESP.Q4H.WA [facility] Last Admin: 05/01/17 06:02 Dose: 3 ml Azithromycin (Zithromax) 500 mg PO DAILY [facility] Enoxaparin Sodium (Lovenox) 40 mg SC DAILY [facility] Sodium Chloride () 1,000 mls @ 125 mls/hr IV .Q8H PRN PRN Reason: LARGE VOLUME IV Last Admin: 05/01/17 05:50 Dose: 125 mls/hr Ceftriaxone Sodium 1 gm/ (Sodium Chloride) 100 mls @ 100 mls/hr IVPB Q12HR [facility] Stop: 05/05/17 22:01 Last Admin: 04/30/17 21:09 Dose: 100 mls/hr Lisinopril (Zestril) 20 mg PO DAILY [facility] Last Admin: 04/30/17 19:23 Dose: 20 mg Methylprednisolone Sodium Succinate (Solu-Medrol) 60 mg IVP Q8HR [facility] Last Admin: 04/30/17 21:08 Dose: 60 mg AMI Plan - Labs Result Diagrams: 05/01/17 06:25 04/30/17 08:25
[2017-05-01] MEDS ORDERED: PREDNISONE 20 MG TAB PO SCH (08:00)
[2017-05-01] MEDS: METHYLPREDNISOLONE PF 125MG/VIAL IVP SCH (08:12)
--- NOTE | 2017-05-01 08:45 | Discharge Summary ---
Providers Discharge Summary Date: 05/01/17 Date of admission: 04/30/17 12:26 Attending physician: SHAYLEE WHITING Physical Exam - Vital Signs Vital Signs: Vital Signs - Last 24 Hrs Temp Pulse Pulse Resp BP BP Pulse Ox 05/01/17 07:59 97.7 F 94 H 18 137/84 94 L 05/01/17 06:05 86 16 05/01/17 06:01 86 16 97 05/01/17 05:59 98.3 F 20 138/75 92 L 05/01/17 03:42 98.7 F 78 20 127/74 93 L 04/30/17 22:23 88 16 04/30/17 22:22 84 16 94 L 04/30/17 20:37 98.3 F 98 H 20 157/78 97 04/30/17 18:00 97.5 F L 115 H 20 182/82 96 04/30/17 17:40 87 15 04/30/17 14:05 91 H 16 96 04/30/17 13:24 101 H 16 04/30/17 13:15 98.9 F 100 H 18 160/83 94 L 04/30/17 13:04 91 H 16 155/83 96 - General General Appearance: Alert, Oriented x3, Cooperative, No acute distress - Head Head exam: Normal inspection - Eye Eye exam: Normal appearance, PERRL Pupils: Normal accommodation - ENT ENT exam: Normal exam, Mucous membranes moist, Normal external ear exam, Normal orophraynx, TM's normal bilaterally Ear exam: Normal external inspection. negative: External canal tenderness Nasal Exam: Normal inspection. negative: Discharge, Sinus tenderness Mouth exam: Normal external inspection, Tongue normal Teeth exam: Normal inspection. negative: Dental caries Throat exam: Normal inspection. negative: Tonsillar erythema, Tonsillar exudate - Neck Neck exam: Normal inspection, Full ROM. negative: Tenderness - Respiratory Respiratory exam: Decreased breath sounds (IN LEFT LOWER LOBE WITH EGOPHONY), Rhonchi (bilateral lung bases ), Wheezes. negative: Respiratory distress - Cardiovascular Cardiovascular Exam: Regular rate, Normal rhythm, Normal heart sounds, Tachycardia Peripheral Pulses: 2+: Radial (R), Radial (L), Dorsalis Pedis (R), Dorsalis Pedis (L) - GI/Abdominal GI/Abdominal exam: Soft, Normal bowel sounds. negative: Tenderness - Rectal Rectal exam: Deferred - exam: Deferred - Extremities Extremities exam: Normal inspection, Full ROM, Normal capillary refill. negative: Tenderness - Back Back exam: Reports: Normal inspection, Full ROM. Denies: Muscle spasm, Rash noted, Tenderness - Neurological Neurological exam: Alert, Normal gait, Oriented X3, Reflexes normal - Psychiatric Psychiatric exam: Normal affect, Normal mood - Skin Skin exam: Dry, Intact, Normal color, Warm Hospitalization - Hospitalization Admission Diagnosis: Left lower pneumonia. copd with wheezing - Problem List/Discharge Diagnosis (1) LLL pneumonia Plan: - CXR shows left lower lobe infiltrate. CURB 65 - 0, pt could be managed as an outpatient based on scoring but considering his COPD and elevated BP inpatient workup would be appropriate. - patient started on Zithromax/Rocephin IV, will order sputum g/c. BCX pending , PO medications ordered repeat CBC w/ diff, lytes - respiratory treatments: duonebs changed to Q4H, chest physiotherapy - repeat cxr 4 weeks post d/c for eval resolution 05/01/17 08:59 Current Visit: Yes Status: Acute Discharge Diagnosis: Pneumonia type: due to unspecified organism Qualified Code(s): J18.1 - Lobar pneumonia, unspecified organism Base Code: J18.1 - LOBAR PNEUMONIA, UNSPECIFIED ORGANISM (2) COPD (chronic obstructive pulmonary disease) with acute bronchitis Plan: - titrate oxygen to keep sats > 92% - respiratory therapy Q4H scheduled, ordered Breo for tomorrow, chest physiotherapy daily - continue Zithromax/Rocephin change to PO meds, change Solumedrol 60mg Q8H to prednisone PO - Pneumovax and seasonal influenza vaccination needed. - Opt PFTs and f/u with Pulmonary medicine for low dose CT and abdominal U/S for AAA screening. Current Visit: Yes Status: Acute Base Code: J44.0 - CHRONIC OBSTRUCTIVE PULMON DISEASE W ACUTE LOWER RESP INFCT; J20.9 - ACUTE BRONCHITIS, UNSPECIFIED (3) Hypertension Plan: - pts BP is poorly controlled, 160/83 --> 182/82 - started patient on Lisinopril 20mg PO QD, will titrate as appropriate. - lipid panel pending Current Visit: Yes Status: Acute Discharge Diagnosis: Hypertension type: essential hypertension Qualified Code(s): I10 - Essential (primary) hypertension Base Code: I10 - ESSENTIAL (PRIMARY) HYPERTENSION (4) Tobacco abuse Plan: - 40 pk/yr smoking, currently smokes - ordered nicotine patches - counseled > 5 mins regarding cessation. Current Visit: Yes Status: Acute Base Code: Z72.0 - TOBACCO USE (5) Full code status Plan: FULL CODE Current Visit: Yes Status: Acute Base Code: Z78.9 - OTHER SPECIFIED HEALTH STATUS - Hospitalization Course Disposition: Home, Self-Care Hospital Course: 61 y/o male who presents with shortness of breath and productive cough for 2-3 days. The patient is a long-term tobacco user and says he has had shortness of breath for some time but symptoms worsened over the past few days. On arrival to the ED the patient was noted be tachycardic, with significant wheezing and cough. ED course: pt was started on duoneb respiratory therapy, IV antibiotics and IV solumedrol Q8H. His CURB 65 score is 0 but considering the patient's lack of outpatient care and comorbidities the decision was made to admit him overnight. On day one of admission the patient's respiratory status remained stable and he was saturating in the 90's on 2 liters nasal cannula oxygen. Med/Surg: pt was admitted to the general medical floor and was maintained on oxygen therapy with respiratory therapy Q4H, IV steroids and antibiotics. His abx and steroids were changed to PO in anticipation for discharge today. The patient has been afebrile, with no elevation in white count overnight. The patient was noted to be hypertensive and was started on Lisinopril 40mg QD. Abnormal Labs: Abnormal Lab Results 05/01/17 Range/Units 06:25 RBC 4.09 L (4.40-5.70) M/uL Hgb 13.0 L (14.0-18.0) gm/dl Hct 38.3 L (42.0-52.0) % Neutrophils % 82.0 H (47-80) % Lymphocytes % 6.2 L (16-45) % Lymphocytes 7.0 L (16-45) % Condition at Discharge: (2) Stable Discharge Medications - Discharge Medications Prescriptions: Azithromycin [Zithromax] 500 mg PO DAILY #3 tab Cefdinir 300 mg PO Q12H #14 capsule Fluticasone/Vilanterol 100/25 [Breo Ellipta 100-25 Mcg INH] 1 puff INH RESP.DAILY #1 inhaler Lisinopril 40 mg PO DAILY #30 tab Prednisone [Prednisone 20Mg] 40 mg PO DAILYWM #6 tab Home Medications: Ambulatory Orders Azithromycin [Zithromax] 500 mg PO DAILY #3 tab 05/01/17 [Last Taken Unknown] Cefdinir 300 mg PO Q12H #14 capsule 05/01/17 [Last Taken Unknown] Fluticasone/Vilanterol 100/25 [Breo Ellipta 100-25 Mcg INH] 1 puff INH RESP.DAILY #1 inhaler 05/01/17 [Last Taken Unknown] Lisinopril 40 mg PO DAILY #30 tab 05/01/17 [Last Taken Unknown] Prednisone [Prednisone 20Mg] 40 mg PO DAILYWM #6 tab 05/01/17 [Last Taken Unknown] Discharge Plan - Discharge Instructions Activity at Discharge: Increase Activity as Tolerated Diet at Discharge: Regular Diet Quality Measures - Quality Measures Quality Measures: Documentation of Current Medications in Medical Record, Screening for High Blood Pressure and F/U Documented - Current Medications Quality Measure: Measure #130: Documentation of Current Medications Documentation of Current Medications: <Current Medications Documented/Reviewed> [[id number]] - Blood Pressure Screening Quality Measure: Screening for High Blood Pressure and Follow-Up Documented Does Patient Have Any of the Following: Active Dx of HTN Blood Pressure Classification: Pre-Hypertensive BP Reading Systolic Measurement: 155 Diastolic Measurement: 83 Screening for High Blood Pressure: Patient Exclusion, Hx of HTN [G9744] - Elder Abuse Suspicion Index EASI Reference Information: Leia ODEN, Sylvia C, Linn D, Shruthi Feliciano.Development and validation of a tool to assist physicians identification of elder abuse: The Elder Abuse Suspicion Index (EASI ). Journal of Elder Abuse and Neglect, 2008; 20 (3): 276-300.
[2017-05-01] MEDS: LISINOPRIL 20 MG TABLET PO SCH (09:29)
[2017-05-01] MEDS: CEFTRIAXONE SODIUM 1 GM in 0.9 % SODIUM CHLORIDE 100ML 100 ML IVPB SCH (09:30)
[2017-05-01] MEDS ORDERED: ENOXAPARIN 40 MG/0.4 ML SYR SC SCH (10:00)
[2017-05-01] MEDS ORDERED: AZITHROMYCIN 500 MG TABLET PO SCH (10:00)
== END 2017-05-01 11:25 | disposition home or self-care (01) ==
LOC: ER 08:07 → MEDSURG 12:26 → INTOOBSV 12:26
PROVIDERS: ADMIT Internal Medicine; ATTEND Internal Medicine
DX: J44.0 Chronic obstructive pulmonary disease with (acute) lower respiratory infection (principal); J18.9 Pneumonia, unspecified organism; F17.210 Nicotine dependence, cigarettes, uncomplicated; J44.1 Chronic obstructive pulmonary disease with (acute) exacerbation; Z87.01 Personal history of pneumonia (recurrent); I10 Essential (primary) hypertension; Z72.89 Other problems related to lifestyle
CPT/HCPCS: 99285 ×2; 96366; 96375; 82550; 85025; 85730; 82553 ×2; 84484 ×2; 80048 ×2; 80061; 85027; 71020; 94640 ×3; 94761; 93005; 93010; 90732; 90686; G0378 ×2; J7512; 96365; 99217; 99220; J1650; J2930; J7040; J7613